=== PATIENT | male | born 1965 | race Caucasian/White ===

== ENCOUNTER 2018-11-24 03:02 | Observation (INO) | payer OTHER ==
[2018-11-24 03:24] LABS: Absolute Lymphocytes (CBC) 2.6 K/uL (0.7-4.9); Basophils % 1.1 % (0-1.3); Eosinophils % 3.1 % (0-4.4); Hematocrit 42.6 % (39.6-49.0); Lymphocytes % 41.5 % (15.3-44.8); MPV 7.8 fL (7.6-11.3); Monocytes % 10.1 % (3.3-12.3); RBC Red Blood Cell Count 4.76 M/uL (4.33-5.43)
[2018-11-24] MEDS ORDERED: ONDANSETRON 4 MG/2 ML VIAL ONE (03:35)
[2018-11-24] MEDS ORDERED: MORPHINE 4 MG/ML SYR ONE (03:35)
[2018-11-24 03:39] LABS: Protime INR 0.92
[2018-11-24] MEDS ORDERED: HYDROMORPHONE HCL 1 MG/ML INJ ONE ×2 (03:48→04:26)
[2018-11-24 03:50] LABS: Potassium 4.4 mmol/L (3.5-5.1); Troponin (Emerg Dept Use Only) 0.04 ng/mL (0.0-0.045)
--- NOTE | 2018-11-24 04:28 | ER ---
Nurse's Notes [facility] Name: Justus Portillo Age: 53 yrs Sex: Male : 1965 Arrival Date: 11/24/2018 Time: 03:04 Bed 3 Private MD: Diagnosis: Chest pain, unspecified Presentation: 11/24 03:07 Presenting complaint: Patient states: that at approx 0200 he was just sitting there and fc he started to have severe chest pain along with shortness of breath and nausea. Denies any vomiting. states pain is sharp and nonradiating. Transition of care: patient was not received from another setting of care. Onset of symptoms was November 24, 2018 at 02:00. Risk Assessment: Do you want to hurt yourself or someone else? Patient reports no desire to harm self or others. Initial Sepsis Screen: Does the patient meet any 2 criteria? HR > 90 bpm. Yes Does the patient have a suspected source of infection? No. Patient's initial sepsis screen is negative. Care prior to arrival: Medication(s) given: ASA, prior to EMS arrival pt took 81 mg x 2 and 325 mg x 2 EMS gave pt Nitro x 3 s/l and Nubain 10 mg ivp IV initiated. 20 GA, in the left forearm. 03:07 Method Of Arrival: EMS: [facility] 03:07 Acuity: KIZZY 2 fc Historical: - Allergies: 03:12 Iaznure-Eqt-Ieh Reductase Inhibitors; fc - Home Meds: 03:28 metoprolol tartrate 25 mg oral tab 1 tab 2 times per day [Active]; isosorbide fc mononitrate 30 mg oral Tb24 1 tab once daily [Active]; fenofibrate 160 mg oral tab 1 tab once daily [Active]; metformin 500 mg oral Tb24 1 tab once daily [Active]; pantoprazole 40 mg oral TbEC 1 tab once daily [Active]; BRILINTA 90 mg oral tab 1 tab 2 times per day [Active]; valsartan 160 mg oral tab 1 tab once daily [Active]; - PMHx: 03:12 Diabetes - NIDDM; Myocardial infarction; Hypertension; fc - PSHx: 03:12 CABG; Heart stents; fc - Immunization history:: Last tetanus immunization: up to date. - Social history:: Smoking status: Patient/guardian denies using tobacco, Patient uses alcohol, occasionally. Patient/guardian denies using street drugs. - Ebola Screening: : Patient negative for fever greater than or equal to 101.5 degrees Fahrenheit, and additional compatible Ebola Virus Disease symptoms Patient denies exposure to infectious person Patient denies travel to an Ebola-affected area in the 21 days before illness onset. - Family history:: not pertinent. - Hospitalizations: : No recent hospitalization is reported. Screenin:13 Abuse screen: Denies threats or abuse. Nutritional screening: No deficits noted. fc Tuberculosis screening: No symptoms or risk factors identified. Fall Risk None identified. Assessment: 03:20 General: Appears in no apparent distress. uncomfortable, Behavior is calm, cooperative, jd3 appropriate for age. Pain: Complains of pain in chest Pain does not radiate. Quality of pain is described as pressure, sharp, Pain began suddenly. Neuro: Level of Consciousness is awake, alert, obeys commands, Oriented to person, place, time, situation, Appropriate for age. Cardiovascular: Reports chest pain, Heart tones S1 S2 present Capillary refill < 3 seconds Patient's skin is warm and dry. Rhythm is regular Chest pain quality is pressure, sharp, squeezing, is located in anterior chest wall. Respiratory: Airway is patent Respiratory effort is even, unlabored, Respiratory pattern is regular, symmetrical, Breath sounds are clear bilaterally. Denies shortness of breath. GI: No signs and/or symptoms were reported involving the gastrointestinal system. : No signs and/or symptoms were reported regarding the genitourinary system. EENT: No signs and/or symptoms were reported regarding the EENT system. Derm: Skin is intact, Skin is dry, Skin is normal, Skin temperature is warm. Musculoskeletal: Circulation, motion, and sensation intact. Range of motion: intact in all extremities. 04:17 Reassessment: Patient appears in no apparent distress at this time. Patient and/or jd3 family updated on plan of care and expected duration. Pain level reassessed. Patient is alert, oriented x 3, equal unlabored respirations, skin warm/dry/pink. pt reports decreased, but continuing pain sensation. provider notified. even and unlabored respirations, family/friends at bedside. 05:35 Reassessment: Patient appears in no apparent distress at this time. Patient and/or jd3 family updated on plan of care and expected duration. Pain level reassessed. Patient is alert, oriented x 3, equal unlabored respirations, skin warm/dry/pink. pt reports decreased pain sensation. even and unlabored respirations. awaiting room assignment. Patient states feeling better. 06:32 Reassessment: Patient appears in no apparent distress at this time. Patient and/or jd3 family updated on plan of care and expected duration. Pain level reassessed. Patient is alert, oriented x 3, equal unlabored respirations, skin warm/dry/pink. Dr. Archibald at bedside. pt with no distress noted at this time. awaiting room assignment. Patient states feeling better. Vital Signs: 03:12 BP 156 / 107; Pulse 117; Resp 18; Temp 98.2(O); Pulse Ox 96% on R/A; Weight 95.25 kg fc (R); Height 5 ft. 7 in. (170.18 cm) (R); Pain 8/10; 03:27 BP 133 / 91; Pulse 104; Resp 14 S; Pulse Ox 97% on R/A; Pain 8/10; jd3 04:16 Pain 5/10; jd3 04:17 BP 127 / 76; Pulse 88; Resp 17 S; Pulse Ox 96% on R/A; Pain 5/10; jd3 05:15 Pain 3/10; jd3 05:36 BP 118 / 75; Pulse 82; Resp 15 S; Pulse Ox 97% on R/A; Pain 3/10; jd3 06:38 BP 121 / 75; Pulse 68; Resp 17 S; Pulse Ox 97% on R/A; Pain 3/10; jd3 07:16 BP 109 / 79; Pulse 80; Resp 18; Pulse Ox 97% ; sv 03:12 Body Mass Index 32.89 (95.25 kg, 170.18 cm) ED Course: 03:04 Patient arrived in ED. am2 03:07 Shashank Pennington MD is Attending Physician. rn 03:10 Triage completed. fc 03:12 Arm band placed on Patient placed in an exam room, on a stretcher. fc 03:13 Patient has correct armband on for positive identification. Placed in gown. Bed in low fc position. Call light in reach. Side rails up X2. engine monitor on. Pulse ox on. NIBP on. 03:13 Maintain EMS IV. Dressing intact. Good blood return noted. Site clean \T\ dry. Gauge \T\ fc site: 20 gauge to left forearm. 03:22 X-ray completed. Portable x-ray completed in exam room. Patient tolerated procedure kw well. 03:25 Bishop Wheeler RN is Primary Nurse. jd3 03:44 Patient maintains SpO2 saturation greater than 95% on room air. jd3 04:27 Alvino Albright MD is Hospitalizing Provider. rn 07:15 No provider procedures requiring assistance completed. Patient admitted, IV remains in sv place. intact. Administered Medications: 03:26 Drug: morphine 4 mg Route: IVP; Site: left antecubital; jd3 03:38 Follow up: Response: Pain is unchanged, physician notified jd3 03:26 Drug: Zofran 4 mg Route: IVP; Site: left antecubital; jd3 04:16 Follow up: Response: No adverse reaction jd3 03:30 Not Given (Physician Discretion): Labetalol 5 mg IVP once jd3 03:38 Drug: Dilaudid 1 mg Route: IVP; Site: left antecubital; jd3 04:16 Follow up: Pain 5/10 Adult; Response: No adverse reaction; Pain is decreased jd3 04:16 Drug: Dilaudid 1 mg Route: IVP; Site: left antecubital; jd3 05:15 Follow up: Pain 3/10 Adult; Response: No adverse reaction; Pain is decreased jd3 Outcome: 04:27 Decision to Hospitalize by Provider. rn 07:[address] [facility] accompanied by tech, via wheelchair, room 228, with chart, Report sv called to Fifi GASTON 07:22 Condition: stable 07:22 Instructed on the need for admit. 07:47 Patient left the ED. sv Signatures: Keyla Eric RN RN Yudith Sanches RN RN Shashank Pennington MD MD rn Whitley, Kimberlee kw Moreno, Amanda am2 Davies, Jonathon, RN RN jd3 Corrections: (The following items were deleted from the chart) 03:28 03:12 Home Meds: Metoprolol Tartrate Oral; [facility] 03:28 03:12 Home Meds: Isosorbide Mononitrate Oral; [facility] 03:28 03:12 Home Meds: fenofibrate oral oral; [facility] 03:28 03:12 Home Meds: Metformin Oral; [facility]
--- NOTE | 2018-11-24 04:28 | EDPHYS ---
Physician Documentation [facility] Name: Justus Portillo Age: 53 yrs Sex: Male : 1965 Arrival Date: 11/24/2018 Time: 03:04 Bed 3 Private MD: ED Physician Shashank Pennington HPI: 11/24 03:13 This 53 yrs old Male presents to ER via EMS with complaints of Chest Pain. rn 03:13 The patient or guardian reports chest pain that is located primarily in the substernal rn area. Onset: 1 hour(s) ago. The pain does not radiate. Associated signs and symptoms: Pertinent positives: diaphoresis, shortness of breath, Pertinent negatives: abdominal pain, lower extremity swelling, syncope, vomiting. The chest pain is described as a heaviness, sharp. Duration: The patient or guardian reports a single episode, that is still ongoing. Severity of pain: At its worst the pain was moderate in the emergency department the pain is unchanged. The patient has experienced similar episodes in the past. Reports at rest but not sleeping, sudden onset of heavy and sharp chest pain, non-radiating, assoc with diaphoresis, reports similar symptoms when had UT and stents before. Has had bypass as well as stents of bypassed vessels. Given nitro and aspirin by EMS, no alleviation of symptoms. Denies preceding episodes of chest pain with exertion.. Historical: - Allergies: 03:12 Gmoftfu-Shd-Nwm Reductase Inhibitors; fc - Home Meds: 03:28 metoprolol tartrate 25 mg oral tab 1 tab 2 times per day [Active]; isosorbide fc mononitrate 30 mg oral Tb24 1 tab once daily [Active]; fenofibrate 160 mg oral tab 1 tab once daily [Active]; metformin 500 mg oral Tb24 1 tab once daily [Active]; pantoprazole 40 mg oral TbEC 1 tab once daily [Active]; BRILINTA 90 mg oral tab 1 tab 2 times per day [Active]; valsartan 160 mg oral tab 1 tab once daily [Active]; - PMHx: 03:12 Diabetes - NIDDM; Myocardial infarction; Hypertension; fc - PSHx: 03:12 CABG; Heart stents; fc - Immunization history:: Last tetanus immunization: up to date. - Social history:: Smoking status: Patient/guardian denies using tobacco, Patient uses alcohol, occasionally. Patient/guardian denies using street drugs. - Ebola Screening: : Patient negative for fever greater than or equal to 101.5 degrees Fahrenheit, and additional compatible Ebola Virus Disease symptoms Patient denies exposure to infectious person Patient denies travel to an Ebola-affected area in the 21 days before illness onset. - Family history:: not pertinent. - Hospitalizations: : No recent hospitalization is reported. ROS: 03:13 Constitutional: Negative for fever, chills, and weight loss, Eyes: Negative for injury, rn pain, redness, and discharge, ENT: Negative for injury, pain, and discharge, Neck: Negative for injury, pain, and swelling, Cardiovascular: Negative for palpitations, and edema, Respiratory: Negative for cough, wheezing, and pleuritic chest pain, Abdomen/GI: Negative for abdominal pain, nausea, vomiting, diarrhea, and constipation, MS/Extremity: Negative for injury and deformity, Skin: Negative for injury, rash, and discoloration, Neuro: Negative for headache, weakness, numbness, tingling, and seizure. Exam: 03:13 Constitutional: This is a well developed, well nourished patient who is awake, alert, rn appears anxious and hyperventilating Head/Face: Normocephalic, atraumatic. Eyes: Pupils equal round and reactive to light, extra-ocular motions intact. Lids and lashes normal. Conjunctiva and sclera are non-icteric and not injected. Cornea within normal limits. Periorbital areas with no swelling, redness, or edema. Cardiovascular: tachycardic, regular, no murmur Respiratory: Lungs have equal breath sounds bilaterally, clear to auscultation. No increased work of breathing, no retractions or nasal flaring. Abdomen/GI: soft, non-tender MS/ Extremity: Pulses equal, no cyanosis. Neurovascular intact. Full, normal range of motion. Equal circumference. Neuro: Awake and alert, GCS 15, oriented to person, place, time, and situation. Cranial nerves II-XII grossly intact. Motor strength 5/5 in all extremities. Sensory grossly intact. Cerebellar exam normal. 03:17 ECG was reviewed by the Attending Physician. rn Vital Signs: 03:12 BP 156 / 107; Pulse 117; Resp 18; Temp 98.2(O); Pulse Ox 96% on R/A; Weight 95.25 kg fc (R); Height 5 ft. 7 in. (170.18 cm) (R); Pain 8/10; 03:27 BP 133 / 91; Pulse 104; Resp 14 S; Pulse Ox 97% on R/A; Pain 8/10; jd3 04:16 Pain 5/10; jd3 04:17 BP 127 / 76; Pulse 88; Resp 17 S; Pulse Ox 96% on R/A; Pain 5/10; jd3 05:15 Pain 3/10; jd3 05:36 BP 118 / 75; Pulse 82; Resp 15 S; Pulse Ox 97% on R/A; Pain 3/10; jd3 06:38 BP 121 / 75; Pulse 68; Resp 17 S; Pulse Ox 97% on R/A; Pain 3/10; jd3 07:16 BP 109 / 79; Pulse 80; Resp 18; Pulse Ox 97% ; sv 03:12 Body Mass Index 32.89 (95.25 kg, 170.18 cm) fc MDM: 03:07 Patient medically screened. rn 04:24 Differential diagnosis: acute myocardial infarction, acute pericarditis, chest wall rn pain, costochondritis, esophagitis, gastritis, gastroesophageal reflux disease (GERD), pericarditis, pneumothorax, unstable angina. The patient was not given aspirin in the Emergency Department. Patient reports taking aspirin within the past 24 hours. Data reviewed: vital signs, nurses notes, lab test result(s), EKG, radiologic studies, plain films, and as a result, I will admit patient. Test interpretation: by ED physician or midlevel provider: ECG, plain radiologic studies, CXR without acute findings, negative for pneumonia, normal width mediastinum, no PTX. Counseling: I had a detailed discussion with the patient and/or guardian regarding: the historical points, exam findings, and any diagnostic results supporting the discharge/admit diagnosis, lab results, radiology results, the need for further work-up and treatment in the hospital. Response to treatment: the patient's symptoms have markedly improved after treatment, and as a result, I will admit patient. Admission orders: after a detailed discussion of the patient's condition and case, the admit orders are written by me. ED course: Pt with signs and symptoms identical to previous UT, high risk chest pain patient, improved but not resolved chest pain, has had cardiac bypass and multiple stents of bypassed vessels, will admit for further cardiac evaluation and w/u. Initial troponin wnl, + lateral ischemia on ECG, no STEMI.. 11/24 03:08 Order name: Basic Metabolic Panel; Complete Time: 04:07 rn 11/24 03:08 Order name: CBC with Diff; Complete Time: 04:07 rn 11/24 03:08 Order name: NT PRO-BNP; Complete Time: 04:07 rn 11/24 03:08 Order name: Troponin (emerg Dept Use Only); Complete Time: 04:07 rn 11/24 03:18 Order name: PT-INR; Complete Time: 04:07 rn 11/24 03:18 Order name: Ptt, Activated; Complete Time: 04:07 rn 11/24 03:08 Order name: XRAY Chest (1 view) 11/24 05:18 Order name: Basic Metabolic Panel EDOR 11/24 05:18 Order name: Lipid Profile EDOR 11/24 05:18 Order name: Troponin I EDOR 11/24 05:18 Order name: Troponin I EDOR 11/24 05:18 Order name: Echo with Doppler EDOR 11/24 05:18 Order name: CBC with Automated Diff EDOR 11/24 03:08 Order name: EKG; Complete Time: 03:10 rn 11/24 03:08 Order name: Cardiac monitoring; Complete Time: 03:18 rn 11/24 03:08 Order name: EKG - Nurse/Tech; Complete Time: 03:18 rn 11/24 03:08 Order name: IV Saline Lock; Complete Time: 03:18 rn 11/24 03:08 Order name: Labs collected and sent; Complete Time: 03:18 rn 11/24 03:08 Order name: O2 Per Protocol; Complete Time: 03:18 rn 11/24 03:08 Order name: O2 Sat Monitoring; Complete Time: 03:18 rn 11/24 05:18 Order name: CONS Physician Consult EDOR 11/24 05:18 Order name: Heart Healthy EDOR 11/24 05:18 Order name: EKG Electrocardiogram EDOR 11/24 05:18 Order name: EKG Electrocardiogram [facility] EC:17 Rate is 109 beats/min. Rhythm is regular. QRS [place] is Normal. VT interval is normal. rn QRS interval is normal. QT interval is normal. No Q waves. T waves are Inverted in leads I, aVL. No ST changes noted. Clinical impression: Sinus tachycardia and Lateral strain. Interpreted by me. Reviewed by me. Administered Medications: 03:26 Drug: morphine 4 mg Route: IVP; Site: left antecubital; jd3 03:38 Follow up: Response: Pain is unchanged, physician notified jd3 03:26 Drug: Zofran 4 mg Route: IVP; Site: left antecubital; jd3 04:16 Follow up: Response: No adverse reaction jd3 03:30 Not Given (Physician Discretion): Labetalol 5 mg IVP once jd3 03:38 Drug: Dilaudid 1 mg Route: IVP; Site: left antecubital; jd3 04:16 Follow up: Pain 5/10 Adult; Response: No adverse reaction; Pain is decreased jd3 04:16 Drug: Dilaudid 1 mg Route: IVP; Site: left antecubital; jd3 05:15 Follow up: Pain 3/10 Adult; Response: No adverse reaction; Pain is decreased jd3 Disposition: 11/24/18 04:27 Hospitalization ordered by Alvino Albright for Observation. Preliminary diagnosis is Chest pain, unspecified. - Bed requested for Telemetry/MedSurg (observation). - Status is Observation. sv - Condition is Stable. - Problem is new. - Symptoms have improved. UTI on Admission? No Signatures: Dispatcher [employer] EDKeyla Winter RN RN sv Chretien, Felicia, RN RN Shashank Pennington MD MD rn Garcia, Cindy, RN RN cg Davies, Jonathon, RN RN jd3 Corrections: (The following items were deleted from the chart) 03: 03:12 Home Meds: Metoprolol Tartrate Oral; [facility] : 03:12 Home Meds: Isosorbide Mononitrate Oral; [facility] : 03:12 Home Meds: fenofibrate oral oral; [facility] : 03:12 Home Meds: Metformin Oral; fc 06:41 04:27 Hospitalization Ordered by Alvino Albright MD for Observation. Preliminary cg diagnosis is Chest pain, unspecified. Bed requested for Telemetry/MedSurg (observation). Status is Observation. Condition is Stable. Problem is new. Symptoms have improved. UTI on Admission? No. rn 07:47 06:41 11/24/2018 04:27 Hospitalization Ordered by Alvino Albright MD for Observation. sv Preliminary diagnosis is Chest pain, unspecified. Bed requested for Telemetry/MedSurg (observation). Status is Observation. Condition is Stable. Problem is new. Symptoms have improved. UTI on Admission? No. cg
[2018-11-24] MEDS ORDERED: ACETAMINOPHEN 500 MG TAB PO PRN (05:10)
[2018-11-24] MEDS ORDERED: ALPRAZOLAM 0.25 MG TABLET PO PRN (05:10)
[2018-11-24] MEDS ORDERED: MORPHINE 4 MG/ML SYR IV PRN (05:10)
[2018-11-24] MEDS: METOPROLOL TARTRATE 5 MG/5 ML INJ IV SCH ×3 (06:00→06:10)
--- NOTE | 2018-11-24 06:39 | EKG ---
Test Date: 2018-11-24 Test Time: 03:05:02 Cafeteria Cook: TERRY MEASUREMENT RESULTS: Intervals: Rate: 109 OR: 150 QRSD: 78 QT: 320 QTc: 430 [place]: P: 46 OR: 150 QRS: -15 T: 119 INTERPRETIVE STATEMENTS: Sinus tachycardia with premature atrial complexes ST & T wave abnormality, consider lateral ischemia Abnormal ECG No previous ECG available for comparison Electronically Signed On 11-24-18 06:38:40 CDT by Jayjay Ulloa
--- NOTE | 2018-11-24 08:54 | RAD REPORT ---
EXAM DESCRIPTION: RAD - Chest Single View - 11/24/2018 3:25 am CLINICAL HISTORY: Chest pain, shortness of breath COMPARISON: None. TECHNIQUE: AP portable chest image was obtained 0322 hours . FINDINGS: Lungs are clear. Heart and vasculature are normal. No measurable pleural effusion and no p neumothorax. No acute bony abnormality seen. No acute aortic findings suspected. Sternotomy wires are in place. IMPRESSION: No acute cardiopulmonary process.
[2018-11-24] MEDS ORDERED: ASPIRIN EC 81 MG TAB PO SCH (09:00)
[2018-11-24] MEDS ORDERED: ENOXAPARIN 40 MG/0.4 ML SQ SCH (09:00)
[2018-11-24 09:18] LABS: Absolute Lymphocytes (CBC) 3.2 K/uL (0.7-4.9); Basophils % 0.9 % (0-1.3); Eosinophils % 3.1 % (0-4.4); Lymphocytes % 47.7 % (15.3-44.8); MPV 7.9 fL (7.6-11.3); Monocytes % 9.6 % (3.3-12.3); RBC Red Blood Cell Count 4.87 M/uL (4.33-5.43)
[2018-11-24 09:37] LABS: BUN Blood Urea Nitrogen 18 mg/dL (7-18); Bicarbonate 26 mmol/L (21-32); Glucose Level 187 mg/dL (74-106); HDL Cholesterol 25 mg/dL (40-60); LDL Cholesterol, Calculated ND (<130); Potassium 4.1 mmol/L (3.5-5.1); Sodium Level 138 mmol/L (136-145); Troponin I 0.16 ng/mL (0.0-0.045)
[2018-11-24 09:52] LABS: LDL, Direct 126 mg/dL (100-129)
[2018-11-24] MEDS ORDERED: METOPROLOL TAR 25 MG TAB PO SCH (10:00)
--- NOTE | 2018-11-24 10:08 | EKG ---
Test Date: 2018-11-24 Test Time: 07:15:41 Strategy Consultant: FADUMO MEASUREMENT RESULTS: Intervals: Rate: 63 IA: 156 QRSD: 80 QT: 398 QTc: 407 [place]: P: 44 IA: 156 QRS: 2 T: 159 INTERPRETIVE STATEMENTS: Normal sinus rhythm ST & T wave abnormality, consider inferolateral ischemia Abnormal ECG Compared to ECG 11/24/2018 03:05:02 Sinus tachycardia no longer present Atrial premature complex(es) no longer present ST (T wave) deviation still present Possible ischemia still present Electronically Signed On 11-24-18 10:07:19 CDT by Paulie Louis
[2018-11-24 10:31] LABS: Platelet Estimate ADEQ
--- NOTE | 2018-11-24 10:31 | ECHO ---
HEIGHT: 5 ft 7 in WEIGHT: 223 lb 0 oz DATE OF STUDY: 11/24/[address]: Alvino Albright MD 2-DIMENSIONAL: YES M.MODE: YES DOPPLER: YES COLOR FLOW: YES TDS: NO PORTABLE: NO DEFINITY: NO BUBBLE STUDY: NO DIAGNOSIS: CHEST PAIN, RULE OUT ACS CARDIAC HISTORY: CATHERIZATION: YES SURGERY: YES PROSTHETIC VALVE: NO PACEMAKER: NO MEASUREMENTS (cm) DIASTOLIC (NORMALS) SYSTOLIC (NORMALS) IVSd 1.3 (0.6-1.2) LA Diam 3.5 (1.9-4.0) LVEF 67% LVIDd 3.9 (3.5-5.7) LVIDs 2.5 (2.0-3.5) %FS 37% LVPWd 1.4 (0.6-1.2) Ao Diam 3.1 (2.0-3.7) 2 DIMENSIONAL ASSESSMENT: RIGHT ATRIUM: NORMAL LEFT ATRIUM: NORMAL RIGHT VENTRICLE: NORMAL LEFT VENTRICLE: NORMAL TRICUSPID VALVE: NORMAL MITRAL VALVE: NORMAL PULMONIC VALVE: NORMAL AORTIC VALVE: NORMAL PERICARDIAL EFFUSION: NONE AORTIC ROOT: NORMAL LEFT VENTRICULAR WALL MOTION: NORMAL DOPPLER/COLOR FLOW: NORMAL COMMENTS: NORMAL LEFT VENTRICULAR EJECTION FRACTION AND SIZE. NO WALL MOTION ABNORMALITY. NO EFFUSION. TECHNOLOGIST: Harmony PATHAK
[2018-11-24 10:32] LABS: Blood Morphology Comment NOT SEEN (NOT SEEN)
--- NOTE | 2018-11-24 11:30 | P.HP ---
Certification for Inpatient Patient admitted to: Inpatient With expected LOS: >2 Midnights Patient will require the following post-hospital care: None Practitioner: I am a practitioner with admitting privileges, knowledge of patient current condition, hospital course, and medical plan of care. Services: Services provided to patient in accordance with Admission requirements found in Title 42 Section 412.3 of the Code of Federal Regulations Patient History Date of Service: 11/24/18 Reason for admission: UNSTABLE ANGINA History of Present Illness: PATIENT IS A 53-YEAR-OLD GENTLEMAN WITH A HISTORY OF CORONARY ARTERY DISEASE. PATIENT HAS HAD PRIOR TO HIS CABG IN 2010. EARLIER THIS YEAR IN MAY HE HAD SIGNIFICANT CHEST PAIN AND HAD CARDIAC CATHETERIZATION DONE AT [facility]. AT THAT TIME HE REQUIRED 4 CORONARY ARTERY STENTS. HE HAD BEEN DOING WELL AND TAKING HIS MEDICATION UP UNTIL YESTERDAY EVENING WHEN HE HAS SIGNIFICANT CHEST PAIN. PAIN WAS MAINLY IN THE STERNAL REGION. HE SAID HE HAS NEVER HAD SUCH CHEST PAIN IN HIS LIFE. HE CAME TO THE EMERGENCY ROOM FOR FURTHER EVALUATION IN THE ER HE HAD NEGATIVE TROPONINS AND SOME MEDICATION TO HELP DULL HIS CHEST PAIN. EKG INDICATED SOME ST AND T-WAVE ABNORMALITIES IN THE LATERAL LEADS. THERE IS CONCERN THE PATIENT MAY HAVE ACUTE CORONARY SYNDROME. WILL ADMIT HIM TO THE HOSPITAL AND START HIM ON ANTI-PLATELET THERAPY AND STRICT BLOOD PRESSURE CONTROL. HE IS ALLERGIC TO STATIN THERAPY. CARDIOLOGY CONSULTATION ALONG WITH ECHOCARDIOGRAM. NEXT STEP WILL BE DETERMINED BY HIS ADDITIONAL LAB AND EKG FINDINGS. PATIENT IS FROM [place] AND HAS HAD MOST OF HIS CARDIAC STENT STUFF DONE AT [facility]. HOWEVER, THE LAST DOCTOR HE SAW WAS AT [facility]. Allergies Jftxzcf-Trd-Ips Reductase Inhibitor Adverse Reaction (Verified 11/24/18 08:55) Rash Home Medications: Fenofibrate 160 mg PO DAILY 11/24/18 Isosorbide Dinitrate 30 mg PO DAILY 11/24/18 Metformin HCl [Metformin HCl ER] 500 mg PO DAILY 11/24/18 Metoprolol Tartrate 25 mg PO BID 11/24/18 Pantoprazole [Protonix Tab] 40 mg PO DAILY 11/24/18 Ticagrelor [Brilinta*] 90 mg PO BID 11/24/18 Valsartan 160 mg PO DAILY 11/24/18 - Past Medical/Surgical History Has patient received pneumonia vaccine in the past: No Diabetic: Yes -: NIDDM -: SD -: HTN -: CABG -: Heart stents - Family History Father Medical History: Heart disease - Social History Smoking Status: Never smoker Alcohol use: Yes CD- Drugs: No Caffeine use: No Place of Residence: Home Review of Systems 10-point ROS is otherwise unremarkable Physical Examination - Vital Signs Temperature: 97.4 F Blood Pressure: 134/84 Pulse: 80 Respirations: 16 Pulse Ox (%): 94 - Physical Exam General: Alert, In no apparent distress, Oriented x3 HEENT: Atraumatic, PERRLA, Mucous membr. moist/pink, EOMI, Sclerae nonicteric Neck: Supple, 2+ carotid pulse no bruit, No LAD, Without JVD or thyroid abnormality Respiratory: Clear to auscultation bilaterally, Normal air movement Cardiovascular: Regular rate/rhythm, Normal S1 S2, Systolic murmur Gastrointestinal: Normal bowel sounds, Soft and benign, Non-distended, No tenderness Musculoskeletal: No clubbing, No swelling, No tenderness Integumentary: No rashes Neurological: Normal gait, Normal speech, Normal strength at 5/5 x4 extr, Normal tone, Sensation intact, Cranial nerves 3-12 intact, Normal affect Lymphatics: No axilla or inguinal lymphadenopathy - Studies Laboratory Data (last 24 hrs) 11/24/18 03:11: PT 10.9, INR 0.92, APTT 27.3 11/24/18 03:11: WBC 6.2, Hgb 14.8, Hct 42.6, Plt Count 220 11/24/18 03:11: Sodium 136, Potassium 4.4, BUN 18, Creatinine 1.30, Glucose 244 H Assessment & Plan - Problems (Diagnosis) (1) Unstable angina pectoris due to coronary arteriosclerosis Current Visit: Yes Status: Acute (2) History of coronary artery bypass graft x 2 Current Visit: Yes Status: Acute - Plan 1. SERIAL TROPONINS AND EKG 2. CARDIOLOGY CONSULTATION 3. ECHOCARDIOGRAM AND PATIENT MAY NEED CARDIAC CATHETERIZATION 4. ANTI-PLATELET THERAPY, ANTI COAGULATION, BETA-TOOTIE, STATIN- PATIENT WITH ALLERGY, AND O2 NEEDED 5. IV MORPHINE FOR PAIN 6. NITRO P.R.N. 7. IN LIGHT OF PATIENT'S CURRENT CARDIAC ACTIVITY HE WILL PROBABLY NEED FURTHER INTERVENTION AND I BELIEVE HE WOULD BEST BE TREATED WITH INPATIENT HOSPITALIZATION Discharge Plan: Home Plan to discharge in: Greater than 2 days - Advance Directives Does patient have a Living Will: No Does patient have a Durable POA for Healthcare: No - Code Status/Comfort Care Code Status Assessed: Yes Code Status: Full Code Critical Care: No
--- NOTE | 2018-11-24 12:00 | P.DS ---
Admission Date: 11/24/18 Discharge Date: 11/24/18 Primary Care Provider: [facility] including Cardiology-Dr. Aranda Disposition: ROUTINE DISCHARGE Discharge Condition: GOOD Reason for Admission: UNSTABLE ANGINA Consultations: Cardiology-Dr. Louis Procedures: Echocardiogram: Ejection fraction 67% LEFT VENTRICULAR WALL MOTION: NORMAL DOPPLER/COLOR FLOW: NORMAL COMMENTS: NORMAL LEFT VENTRICULAR EJECTION FRACTION AND SIZE. NO WALL MOTION ABNORMALITY. NO EFFUSION. Medical problem list: Chest pain secondary to unstable angina with history of CAD, CABG times 2 vessels with prior stents Hypertension Hyperlipidemia Diabetes mellitus type 2, [id number] Alcohol use Obesity, BMI 34.9 Brief History of Present Illness: 53-year-old male with history of significant Coronary artery disease with prior CABG in 2010 with multiple stents most recently in May of 2018. Patient presented with chest pain. Patient was in the area for a police conference. Patient reported increased stress due to poor air conditioning at facility. Patient reported that he had been drinking alcohol as well. Patient came to the ER for further evaluation. Patient found to have elevated blood pressure with EKG showing some T-wave abnormalities. Patient was admitted for further evaluation. Patient seen by him [facility] cardiology. Hospital Course: Patient presented with chest pain. Patient had been under stress due to poor air conditioning at the facility that he was at. Patient also had been drinking alcohol. Patient found to have elevated blood pressure up on ER evaluation. Due to his past medical history of CAD with prior CABG and multiple stents patient was admitted for further evaluation. Initial troponin unremarkable. Following troponin at 0.16. Echocardiogram shows ejection fraction 67%. Chest pain likely related to unstable angina. Patient was seen and evaluated by Cardiology. No cardiac intervention was required or recommended. At discharge he is without any significant chest pain. Cardiology recommended to increase metoprolol at discharge. At discharge patient will continue with metoprolol 50 mg 1 pill twice daily, Brilinta 90 mg 1 pill twice daily, fenofibrate 160 mg daily, valsartan 160 mg daily and Repatha as directed. Patient also takes isosorbide dinitrate 30 mg daily. Patient may take extra dose of medication-isosorbide dinitrate if with increase chest pain. Recommend to discontinue alcohol use. Recommend no excessive exertion or exercise until he is cleared by cardiology. I did call his visitor services coordinator at [facility] to make arrangements for the patient to be seen within the next couple of days. They are to make arrangements for the patient to be seen. They will call him for an appointment. Patient with hypertension. Blood pressure uncontrolled. Medications adjusted. Metoprolol increased. At discharge she will continue with metoprolol 50 mg 1 pill twice daily and valsartan 160 mg 1 daily. Recommendation is to maintain blood pressures less than 140/90. If consistently elevated he is to contact his visitor services coordinator for further adjustment. Patient with hyperlipidemia. Patient will continue with fenofibrate 160 mg daily. Patient also takes Repatha. LDL elevated at 126. Further adjustment in medication may be required. This can be further addressed by his visitor services coordinator. Patient with GERD. Patient will continue with Protonix 40 mg daily. Patient with diabetes mellitus type 2, non insulin dependent. At discharge he will continue with metformin 500 mg daily. Recommend to maintain blood sugars less 140 fasting and less than 200 after meals. Further adjustment can be done by his PCP. Vital Signs/Physical Exam: Temp Pulse Resp BP Pulse Ox 97.4 F 80 16 134/84 94 11/24/18 11:33 11/24/18 11:33 11/24/18 11:33 11/24/18 11:33 11/24/18 11:33 General: Alert, In no apparent distress, Oriented x3, Cooperative HEENT: Atraumatic Neck: Supple Respiratory: Clear to auscultation bilaterally, Normal air movement Cardiovascular: Normal pulses, Regular rate/rhythm Gastrointestinal: Normal bowel sounds, Soft and benign, Non-distended, No tenderness, No masses, No rebound, No guarding Musculoskeletal: No erythema, No tenderness, No warmth Integumentary: No tenderness/swelling, No erythema, No warmth, No cyanosis Neurological: Normal speech, Normal strength at 5/5 x4 extr, Normal tone, Normal affect Laboratory Data at Discharge: WBC 6.7 K/uL (4.3-10.9) 11/24/18 08:59 Hgb 14.8 g/dL (13.6-17.9) 11/24/18 08:59 Hct 43.0 % (39.6-49.0) 11/24/18 08:59 Plt Count 205 K/uL (152-406) 11/24/18 08:59 PT 10.9 SECONDS (9.5-12.5) 11/24/18 03:11 INR 0.92 11/24/18 03:11 APTT 27.3 SECONDS (24.3-36.9) 11/24/18 03:11 Sodium 138 mmol/L (136-145) 11/24/18 08:59 Potassium 4.1 mmol/L (3.5-5.1) 11/24/18 08:59 BUN 18 mg/dL (7-18) 11/24/18 08:59 Creatinine 1.18 mg/dL (0.55-1.3) 11/24/18 08:59 Glucose 187 mg/dL (74-106) H 11/24/18 08:59 Troponin I 0.16 ng/mL (0.0-0.045) H 11/24/18 08:59 Triglycerides 438 mg/dL (<150) H 11/24/18 08:59 Cholesterol 184 mg/dL (<200) 11/24/18 08:59 LDL Cholesterol Direct 126 mg/dL (100-129) 11/24/18 08:59 HDL Cholesterol 25 mg/dL (40-60) L 11/24/18 08:59 Cholesterol/HDL Ratio 7.36 11/24/18 08:59 Home Medications: Fenofibrate 160 mg PO DAILY 11/24/18 Isosorbide Dinitrate 30 mg PO DAILY 11/24/18 Metformin HCl [Metformin HCl ER] 500 mg PO DAILY 11/24/18 Metoprolol Tartrate 50 mg PO BID #60 tablet 11/24/18 Pantoprazole [Protonix Tab*] 40 mg PO DAILY 11/24/18 Ticagrelor [Brilinta*] 90 mg PO BID 11/24/18 Valsartan 160 mg PO DAILY 11/24/18 New Medications: Metoprolol Tartrate 50 mg PO BID #60 tablet Patient Discharge Instructions: 1. Recommend to follow up with cardiology. Cardiology office is to call patient for arrangements of follow up. 2. Patient presented with chest pain. Patient had been under stress due to poor air conditioning at the facility that he was at. Patient also had been drinking alcohol. Patient found to have elevated blood pressure up on ER evaluation. Due to his past medical history of CAD with prior CABG and multiple stents patient was admitted for further evaluation. Initial troponin unremarkable. Following troponin at 0.16. Echocardiogram shows ejection fraction 67%. Chest pain likely related to unstable angina. Patient was seen and evaluated by Cardiology. No cardiac intervention was required or recommended. At discharge he is without any significant chest pain. Cardiology recommended to increase metoprolol at discharge. At discharge patient will continue with metoprolol 50 mg 1 pill twice daily, Brilinta 90 mg 1 pill twice daily, fenofibrate 160 mg daily, valsartan 160 mg daily and Repatha as directed. Patient also takes isosorbide dinitrate 30 mg daily. Patient may take extra dose of medication-isosorbide dinitrate if with increase chest pain. Recommend to discontinue alcohol use. Recommend no excessive exertion or exercise until he is cleared by cardiology. I did call his visitor services coordinator at [facility] to make arrangements for the patient to be seen within the next couple of days. They are to make arrangements for the patient to be seen. They will call him for an appointment. 3. Patient with hypertension. Blood pressure uncontrolled. Medications adjusted. Metoprolol increased. At discharge she will continue with metoprolol 50 mg 1 pill twice daily and valsartan 160 mg 1 daily. Recommendation is to maintain blood pressures less than 140/90. If consistently elevated he is to contact his visitor services coordinator for further adjustment. 4. Patient with hyperlipidemia. Patient will continue with fenofibrate 160 mg daily. Patient also takes Repatha. LDL elevated at 126. Further adjustment in medication may be required. This can be further addressed by his visitor services coordinator. 5. Patient with GERD. Patient will continue with Protonix 40 mg daily. 6. Patient with diabetes mellitus type 2, non insulin dependent. At discharge he will continue with metformin 500 mg daily. Recommend to maintain blood sugars less 140 fasting and less than 200 after meals. Further adjustment can be done by his PCP. Diet: AHA Activity: Ad jolene Time spent managing pt's care (in minutes): 55
[2018-11-24] MEDS ORDERED: TICAGRELOR 90 MG TABLET PO SCH (21:00)
--- NOTE | 2018-11-25 00:10 | CON ---
Date of Consultation: 11/24/2018 Reason For Consultation: Elevated troponin. History Of Present Illness: Mr. Portillo is a 53-year-old white male, who has a psychiatric therapist in [facility] by the name of Dr. Aranda. Apparently, he has had a complicated past cardiac history. Abigail eubanks has coronary disease. He is status post CABG and recently as of May 2018, underwent 4 stents. He said they initially did 2 stents and then on the morning he was going home, he had what sounded li ke another TN and 2 more stents were placed. He has done well since. He has a history of diabetes, hypertension, and dyslipidemia as well. Apparently over the last couple of days, he had too much to eat and drink [place], he got overheated and fat igued, and had some slight chest discomfort without any nausea, vomiting, diaphoresis, PND, orthopnea , pedal edema, palpitations, or syncope. Allergies: HE IS ALLERGIC TO STATIN, THAT WAS GIVING HIM CRAMPS. HE IS ALLERGIC TO THOMAS INHIBITORS. Review of Systems: Negative. Social History: Negative. Family History: Noncontributory. Medications: At home include Brilinta, Protonix, metoprolol, Imdur, metformin, fenofibrate, valsarta n and he is also on the BiPAP. Physical Examination: General: He was in no acute distress. Vital Signs: Stable. He was afebrile. HEENT: Negative. Neck: Supple without any bruit, lymphadenopathy, JVD, or thyromegaly. Chest: Clear to auscultation and percussion. Cardiac: Revealed a regular rhythm and rate without murmurs, gallops, or rubs. Abdomen: Benign. Extremities: Revealed no clubbing, cyanosis, or edema. Diagnostic Data: His troponin was elevated at 0.160. EKG showed sinus tachycardia with PACs. Chest x-ray was negative. The rest of the blood work was negative. Impression And Plan: Mr. Portillo may have had heat exhaustion causing some of his symptoms. He is pa in-free right now. He came in with sinus tachycardia, PACs, hypertension. I am not too concerned ab out the elevated troponins at this point. This could be secondary to chronic coronary artery disease . I do not think we have enough evidence for me to do another catheterization on him. I certainly w melvinld recommend increasing his metoprolol, at least doubling that. He can certainly take an extra Imd ur as needed for chest pain. Mr. Portillo was hesitant to have any invasive workup anyway. He prefers to go back and see Dr. Aranda and I believe he has an appointment with him coming up in the near future. His other problems including diabetes and dyslipidemia and gastroesophageal reflux disease, seem to be stable. His blood pressure hopefully will be better controlled with doubling up on the m etoprolol. From my standpoint, Mr. Portillo can go home whenever it is okay with Dr. Corbett. MIGUEL/KATIE Voice ID: [id number] Report ID: [id number]
[2018-11-25] MEDS ORDERED: PANTOPRAZOLE 40MG TABLET PO SCH (06:30)
[2018-11-25] MEDS ORDERED: HOME MED 1 EA UNK (Isosorbide Dinitrate [Isosorbide Dinitrate] 30 MG) PO SCH (09:00)
[2018-11-25] MEDS ORDERED: METFORMIN ER 500 MG TAB PO SCH (09:00)
[2018-11-25] MEDS ORDERED: FENOFIBRATE 160 MG TAB PO SCH (09:00)
[2018-11-25] MEDS ORDERED: VALSARTAN 80 MG TAB PO SCH (09:00)
== END 2018-11-24 12:38 | disposition home or self-care (01) ==
LOC: ER 03:02 → ERHOLD 05:11 → 2ND 07:23
PROVIDERS: ADMIT Hospitalist; ATTEND Hospitalist
DX: I25.110 Atherosclerotic heart disease of native coronary artery with unstable angina pectoris (principal); I10 Essential (primary) hypertension; E78.5 Hyperlipidemia, unspecified; E11.9 Type 2 diabetes mellitus without complications; Z72.89 Other problems related to lifestyle; E66.9 Obesity, unspecified; Z68.34 Body mass index [BMI] 34.0-34.9, adult; Z95.1 Presence of aortocoronary bypass graft; Z95.5 Presence of coronary angioplasty implant and graft
CPT/HCPCS: 36415; 71045; 80048; 80061; 82962; 83880; 84484; 85025; 85610; 85730; 93005; 93306; 96374; 96375; 99285; G0378; J1170; J1650; J2405